=== PATIENT | female | born 1960 | race Caucasian/White ===

== ENCOUNTER 2017-12-29 06:33 | Day surgery (SDC) | payer BC ==
[2017-12-29 07:15] LABS: INR 1.15; PARTIAL THROMBOPLASTIN TIME 31.8 Seconds (25.1-36.5); PROTHROMBIN TIME 13.3 SECONDS (9.4-12.5)
[2017-12-29] MEDS ORDERED: Midazolam 2 MG/2 ML VIAL ONE (07:38)
[2017-12-29] MEDS ORDERED: Lidocaine 1% Inj (20ml) ONE (07:38)
[2017-12-29] MEDS ORDERED: Propofol 10 mg/ml Inj (20 ML) ONE (07:38)
[2017-12-29] MEDS ORDERED: Rocuronium 10 mg/ml (5 ml) ONE (07:38)
[2017-12-29] MEDS ORDERED: Bupivacaine 0.5% Inj(30mL) ONE (07:41)
[2017-12-29] MEDS ORDERED: Iohexol 240 (50 ml) ONE (07:41)
[2017-12-29 07:58] VITALS: BMI 25.6
[2017-12-29] MEDS ORDERED: Sevoflurane - Inhalation Anesthetic Liq (250 ml) ONE (08:17)
[2017-12-29] MEDS ORDERED: Bupivacaine 0.5% Inj(30mL) IJ ONE ×2 (08:33)
[2017-12-29] MEDS ORDERED: CeFAZolin 1 gm in NS 100ml IVPB ONE ×2 (08:33→08:55)
[2017-12-29] MEDS ORDERED: ePHEDrine 50 mg/ml Inj ONE (08:58)
[2017-12-29] MEDS ORDERED: Iohexol 240 (50 ml) IVP ONE ×2 (09:26)
[2017-12-29] MEDS ORDERED: Neostigmine Methylsulfate 3mg/3ml Syringe IV ONE (09:32)
[2017-12-29] MEDS ORDERED: Magnesium Oxide 400 mg Tab UD PO SCH (10:00)
[2017-12-29] MEDS ORDERED: HYDROmorphone 0.5 mg/0.5 ml ISec IVP PRN ×2 (10:35→10:38)
--- NOTE | 2017-12-29 10:37 | PCM.SURG1 ---
Surgeon's Initial Post Op Note - Surgeon's Notes Surgeon: Dr. Tanner Director Of Trauma: Dr. Quesada PGY3, Sabrina MS3 Type of Anesthesia: General Endo Anesthesia Administered By: Dr. Capone Pre-Operative Diagnosis: Symptomatic Cholelithiasis Operative Findings: See operative dictation Post-Operative Diagnosis: Symptomatic Cholelithiasis Operation Performed: Laparoscopic Cholecystectomy with intraoperative cholangiogram Specimen/Specimens Removed: Gallbladder Estimated Blood Loss: EBL {In ML}: 10 Blood Products Given: N/A Drains Used: No Drains Post-Op Condition: Good Date of Surgery/Procedure: 12/29/17 Time of Surgery/Procedure: 10:37
[2017-12-29] MEDS ORDERED: Lactated Ringer's 1,000 ML IV SCH (10:45)
--- NOTE | 2017-12-29 11:12 | RAD ---
Date of service: 12/29/2017 PROCEDURE: Operative cholangiogram HISTORY: R/O STONES COMPARISON: TECHNIQUE: 44 seconds of fluoro time. Three images were submitted FINDINGS: There are no filling defects in the common duct. Contrast flows into the duodenum. IMPRESSION: As above
[2017-12-29 11:36] VITALS: BP 133/64; PULSE 74; RESP 18; TEMP 97.6; O2SAT 95
--- NOTE | 2017-12-29 22:16 | OP ---
PROCEDURE DATE: 12/29/2017 PREOPERATIVE DIAGNOSES: Chronic cholecystitis, cholelithiasis. POSTOPERATIVE DIAGNOSES: Chronic cholecystitis, cholelithiasis. PROCEDURE PERFORMED: Laparoscopic cholecystectomy with intraoperative cholangiogram. SURGEON: Luis A Tanner MD. [employer]: Gilberto Quesada DO. ANESTHESIA ADMINISTERED BY: Felton Capone MD. TYPE OF ANESTHESIA: General endotracheal anesthesia. ESTIMATED BLOOD LOSS: Minimal. SPECIMEN: Gallbladder with stones. INDICATIONS: The patient is a 57-year-old female with history of recurrent epigastric pain and discomfort. The patient had an ultrasound showing presence of gallstones and given the recurrence of the symptoms, the patient was scheduled for laparoscopic cholecystectomy. DESCRIPTION OF PROCEDURE: First, a standard time-out procedure took place, when everybody in the room agreed as to the patient's identity, diagnosis, and procedure to be performed. Using 2 towel clips, the anterior abdominal wall was elevated and Veress needle was inserted through a small incision superior to the umbilicus. Once the pneumoperitoneum was obtained, a 12 mm trocar was inserted into abdominal cavity and careful evaluation with the scope revealed the presence of distended gallbladder with some adhesions of the omentum and duodenum to the gallbladder. A second 5 mm trocar was inserted in the subxiphoid position and careful dissection began. First, the gallbladder was detached from the adhesions to the duodenum and the omentum. The infundibulum of the gallbladder was elevated and carefully dissection was done in order to separate the cystic duct from the surrounding structures. Once this was completed, the cystic duct lymph node was noted. I then proceeded with carefully evaluating the cystic artery directly behind the cystic duct. Once we were satisfied with , a metal clip was placed on the proximal portion of the cystic duct and the cystic duct was then incised using scissors on the side of it in order to insert cholangiocatheter. Once this was completed, the cholangiocatheter was inserted into the cystic duct opening and a cholangiogram under direct visualization with fluoroscopy was obtained. That showed prompt flow of dye into the entire biliary tree as well as prompt emptying into the duodenum. Once this was noted, the cholangiocatheter was removed and the cystic duct was clipped distally and transected. The cystic artery was also clipped proximally and distally transected. Using the electrocautery, the gallbladder was detached from the liver bed, and removed through the periumbilical incision. The wound was copiously irrigated. All the irrigant fluid was suctioned out. The patient had the pneumoperitoneum released, trocars removed and the wound was closed using 0-Vicryl for the fascia, 3-0 Vicryl for subcutaneous tissue, and 4-0 Monocryl for the skin. A sterile Dermabond dressing was applied to the wound. The patient tolerated the procedure well and there were no complications. The patient was awakened and transferred to the recovery room for further observation. Luis A Tanner MD
[2017-12-30] MEDS ORDERED: diltiaZEM 240 mg/24 Hours CD Cap PO SCH (10:00)
[2017-12-30] MEDS ORDERED: ZOLMITRIPTAN 2.5 MG PO PRN (10:00)
[2017-12-30] MEDS ORDERED: Pantoprazole 40 mg EC Tab PO SCH (18:00)
[2018-01-28] MEDS ORDERED: OMALIZUMAB SC SCH (10:00)
== END 2017-12-29 12:50 | disposition home or self-care (01) ==
LOC: SDS 06:33
PROVIDERS: ATTEND General Practice
DX: K80.10 Calculus of gallbladder with chronic cholecystitis without obstruction (principal)
CPT/HCPCS: 36415; 47563; 74300; 85610; 85730; 88304; J0131; J0690; J1170; J1885; J2250; J2405; J2704; J2710; J2765; J3010; J7120; Q9966